=== PATIENT | female | born 2000 | race African-American/Black ===

== ENCOUNTER 2019-12-14 21:29 | Emergency (ER) | payer MEDICAID ==
[~2019-12-14] VITALS: Ht 154.9 cm; Wt 59.0 kg
[2019-12-14 22:20] VITALS: BP 120/71
== END 2019-12-15 02:15 | disposition left against medical advice (07) ==
LOC: ER 21:29
DX: R11.2 Nausea with vomiting, unspecified (principal); R42 Dizziness and giddiness; R55 Syncope and collapse; Z53.21 Procedure and treatment not carried out due to patient leaving prior to being seen by health care provider